=== PATIENT | male | born 2000 | race Asian ===

== ENCOUNTER 2025-08-08 13:52 | Emergency (ER) | payer OTHER, SELFPAY ==
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
[2025-08-08 13:53] VITALS: BP 130/74; PULSE 86; RESP 16; TEMP 36.4; O2SAT 100
[2025-08-08 15:46] VITALS: BP 126/70; PULSE 102; RESP 19; O2SAT 100
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
[2025-08-08] MEDS: IBUPROFEN 400 MG TABLET 800 MG PO (17:29)
[2025-08-08] MEDS: ACETAMINOPHEN 500 MG TABLET 1000 MG PO (17:30)
[2025-08-08] MEDS: CYCLOBENZAPRINE HCL 10 MG TABLET PO (17:30)
--- OUTSIDE RECORDS SUMMARY | 2025-08-08 18:05 | XMS_ITS ---
Author Organization Unknown ENCOUNTERS Encounter Performer Location Date Diagnosis Diagnosis Status Pre Admit [id number] [place] [address] [id number] [facility] [id number] [facility] [address] [place], [place] [id number] [facility] *Note: Encounters from your own facility or health system may be excluded. Allergies, Adverse Reactions, Alerts Allergen Type Severity Identification Date Medications Name Date Quantity Days Supplied GPI Number
== END 2025-08-08 18:37 | disposition home or self-care (01) ==
LOC: ANHED 18:02
PROVIDERS: Emergency Provider Emergency Medicine
DX: S80.11XA Contusion of right lower leg, initial encounter (principal); M62.830 Muscle spasm of back; M54.31 Sciatica, right side; V49.40XA Driver injured in collision with unspecified motor vehicles in traffic accident, initial encounter
CPT/HCPCS: 71046; 73590; 99284; A9270

== ENCOUNTER 2025-10-15 14:00 | Emergency (ER) | payer OTHER, SELFPAY ==
[2025-10-15 14:02] VITALS: BP 144/85; PULSE 84; RESP 18; TEMP 36.3; O2SAT 100
[2025-10-15] MEDS: KETOROLAC 10 MG TABLET PO (14:21)
[2025-10-15] MEDS: LIDOCAINE 5% PATCH 1 PATCH TRANSDERM (14:23)
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
[2025-10-15 14:55] VITALS: BP 128/85; PULSE 85; RESP 17; O2SAT 99
== END 2025-10-15 14:57 | disposition home or self-care (01) ==
LOC: ANHED 14:36
PROVIDERS: Emergency Provider Emergency Medicine
DX: S39.012A Strain of muscle, fascia and tendon of lower back, initial encounter (principal); S50.12XA Contusion of left forearm, initial encounter; V49.40XA Driver injured in collision with unspecified motor vehicles in traffic accident, initial encounter
CPT/HCPCS: 99283; A9270